=== PATIENT | female | born 2000 | race Caucasian/White ===

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

== ENCOUNTER → 2022-02-26 15:50 | Outpatient (CLI) | payer BC, SELFPAY ==
--- NOTE | 2022-02-26 | ECG_ITS ---
APPROVED REPORT Exam: Resting ECG HR:84 bpm ECG Measurements Heart Rate 84 AXES IA 131 P 77 QRSd 89 QRS 90 QT 341 T 64 QTc 382 Conclusion SINUS RHYTHM NORMAL ECG Electronically signed by : Joel Burt MD 03/16/2022 13:57:07
== END ==
PROVIDERS: PCP Internal Medicine; Visit Provider Internal Medicine
DX: R07.89 Other chest pain (principal)
CPT/HCPCS: 93005

== ENCOUNTER → 2022-06-14 17:08 | Outpatient (CLI) | payer BC, SELFPAY ==
[2022-06-14 17:23] LABS: Basophils % 0.3 % (0.1-2.0); Eosinophils # 0.1 K/mm3 (0.0-0.4); Eosinophils % 0.7 % (0.1-12.0); Hematocrit 36.2 % (37.0-47.0); Hemoglobin 12.2 g/dL (12.2-16.2); Lymphocytes # 0.4 K/mm3 (0.7-4.5); Lymphocytes % 5.9 % (10-50); Mean Corpuscular HGB Conc 33.6 g/dL (31.8-35.4); Mean Corpuscular Hemoglobin 29.7 pg (27.0-31.2); Mean Corpuscular Volume 88.3 fl (81-99); Mean Platelet Volume 8.3 fl (7.4-10.4); Monocytes # 0.3 K/mm3 (0.1-1.0); Monocytes % 4.9 % (1.7-9.3); Neutrophils # 6.1 K/mm3 (1.8-7.8); Neutrophils % 88.1 % (37.0-80.0); Platelet Count 208 K/mm3 (142-424)
[2022-06-14 17:25] LABS: MANUAL DIFFERENTIAL MANUAL DIFFERENTIAL (MANUAL DIFF)
[2022-06-14 17:36] LABS: Eosinophils % 1 % (0-3); Lymphocytes % 4 % (10-50); Monocytes % 4 % (2-9); Neutrophils % 91 % (42-76); Total Cells Counted 100
[2022-06-14 17:38] LABS: Platelet Estimate Normal; RBC Morphology Normal
== END ==
PROVIDERS: PCP Internal Medicine; Visit Provider Internal Medicine
DX: R10.9 Unspecified abdominal pain (principal)
CPT/HCPCS: 85007; 85025

== ENCOUNTER → 2022-06-14 17:09 | Outpatient (CLI) | payer BC, SELFPAY | PROVIDERS: PCP Internal Medicine; Visit Provider Internal Medicine | DX: R10.9 Unspecified abdominal pain (principal) ==

== ENCOUNTER → 2022-06-15 15:40 | Outpatient (CLI) | payer BC, SELFPAY ==
--- NOTE | 2022-06-15 15:46 | CT_ITS ---
FINAL REPORT TECHNIQUE: Axial images through the abdomen and pelvis were performed without contrast. This study was performed with techniques to keep radiation doses as low as reasonably achievable, (ALARA). Individualized dose reduction techniques using automated exposure control or adjustment of mA and/or kV according to the patient's size were employed. CLINICAL HISTORY: ABDOMINAL PAIN FINDINGS: ABDOMEN: The lung bases are clear. The heart size is normal. There are numerous calcified granulomas in the liver and spleen. There is mild nonspecific gallbladder wall thickening. There are multiple calcified nodes in the upper abdomen. No adrenal mass is identified. The aorta is normal in caliber. There is no significant free fluid or adenopathy. There are several, less than 3 mm bilateral nonobstructing renal stones. There is no hydronephrosis. No acute inflammatory process is identified. PELVIS: The appendix is normal. The urinary bladder is unremarkable. There is no significant free fluid or adenopathy. IMPRESSION: Bilateral nonobstructing renal stones. Mild nonspecific gallbladder wall thickening. No acute inflammatory process. Reviewed, Interpreted and Dictated by Kevin Sanz III, MD Transcribed by Geovanna Lyons Authenticated and [facility]
== END ==
LOC: RAD 15:41
PROVIDERS: PCP Internal Medicine; Visit Provider Internal Medicine
DX: R10.9 Unspecified abdominal pain (principal)
CPT/HCPCS: 74176

== ENCOUNTER → 2022-11-05 16:02 | Outpatient (CLI) | payer BC, SELFPAY ==
[2022-11-05 16:22] VITALS: BMI 21.2
== END ==
PROVIDERS: PCP Internal Medicine; Visit Provider Physician Assistant
DX: Z11.1 Encounter for screening for respiratory tuberculosis (principal)
CPT/HCPCS: 86580

== ENCOUNTER 2023-06-10 15:41 | Outpatient (CLI) | payer BC, SELFPAY ==
--- NOTE | 2023-06-10 03:50 | ECG_ITS ---
APPROVED REPORT Exam: Resting ECG HR:78 bpm ECG Measurements Heart Rate 78 AXES OH 135 P 75 QRSd 87 QRS 90 QT 347 T 74 QTc 380 Conclusion SINUS RHYTHM NORMAL ECG UNCONFIRMED REPORT Electronically signed by : Mark Sims MD 06/10/2023 19:26:57
--- NOTE | 2023-06-10 16:41 | XR_ITS ---
PROCEDURE INFORMATION: Exam: XR Chest Exam date and time: 06/10/2023 4:43 PM Age: 23 years old Clinical indication: Sternal or substernal pain; Patient HX: Palpitations, cp. HX of histoplasmosis TECHNIQUE: Imaging protocol: Radiologic exam of the chest. Views: 2 views. COMPARISON: CR XR CHEST 2V 03/26/2019 4:31 PM FINDINGS: Lungs: Normal. Pleural spaces: Normal No pleural effusion. No pneumothorax. Heart/Mediastinum: Normal. No cardiomegaly. Bones/joints: Unremarkable. IMPRESSION: No acute findings.
== END 2023-06-10 23:59 ==
PROVIDERS: PCP Internal Medicine; Visit Provider Internal Medicine
DX: R00.2 Palpitations (principal); R07.89 Other chest pain; Z86.19 Personal history of other infectious and parasitic diseases
CPT/HCPCS: 71046; 93005; 93225

== ENCOUNTER 2023-06-24 09:23 | Outpatient (CLI) | payer BC, SELFPAY ==
--- NOTE | 2023-06-24 | CA_ITS ---
APPROVED REPORT Exam: Exercise Treadmill Technologist: Charo Andres, Ht: 5 ft 9 in Wt: 135 lbs BSA: 1.75 m2 HR: 86 bpm BP: 126/76 mmHg Rhythm: NSR Stress Test Details Test: Triston HR Resting HR: 104 bpm Max Heart Rate (APMHR): 199 bpm Max HR Achieved: 183 bpm Target HR (85% APMHR): 169 bpm % of APMHR: 92 Recovery HR: 112 bpm HR response to stress: Normal HR response to stress BP Resting BP: 133.0/81.0 mmHg Max BP: 144.0/60.0 mmHg Recovery BP: 130.0/76.0 mmHg BP response to stress: Normal blood pressure response to stress. ECG Resting ECG: NSR, rightward axis Stress ECG: < 0.[address] depression Arrhythmia: None Recovery ECG: Return to baseline within 3 minutes of recovery Recovery Arrhythmia: None Clinical Exercise duration: 09:39 min Highest Stage Achieved: IV Exercise capacity: 10.1 METs Overall Exercise Capacity for Age: Average Stress ECG Conclusion The patient was able to exercise for a total of 9 minutes, 39 seconds. She achieved a total of 10.1 METS. She has average exercise capacity compared to age and sex matched peers. She has normal HR and BP response to exercise. Max HR: 183 % of PM: 92% Max HR: 144/64 METs: 10.1 Test stopped due to: SOA Symptoms: No CP. Arrhythmias/Ectopy: None ST-T Changes: 0.[address] depression that resolved quickly after recovery Conclusion: Average exercise capacity. No ECG evidence of ischemia at peak stress. GXT only (no imaging) Test Summary REST . . . . . . . Sitting REST . . . . . . . Standing REST 03:31 0.0 0.0 104 . 133/ 81 . . Stage 1 01:00 10.0 1.7 124 . . . . Stage 1 02:00 10.0 1.7 132 . . . . Stage 1 03:00 10.0 1.7 136 . 138/ 62 . . Stage 2 01:00 12.0 2.5 145 . . . . Stage 2 02:00 12.0 2.5 152 . . . . Stage 2 03:00 12.0 2.5 154 . 144/ 60 . . Stage 3 01:00 14.0 3.4 166 . . . . Stage 3 02:00 14.0 3.4 171 . . . . Stage 3 03:00 14.0 3.4 174 . 144/ 64 . . Stage 4 00:39 16.0 4.2 182 . . . Stop exercise at 09:39 RECOVERY 01:00 0.0 0.0 164 . . . . RECOVERY 02:00 0.0 0.0 136 . 140/ 73 . . RECOVERY 03:00 0.0 0.0 120 . 140/ 73 . . RECOVERY 04:00 0.0 0.0 118 . 132/ 70 . . RECOVERY 05:00 0.0 0.0 112 . 130/ 76 . . RECOVERY 05:27 0.0 0.0 106 . 130/ 76 . . Electronically signed by : Dolly Morales MD 06/28/2023 00:51:13
--- NOTE | 2023-06-24 09:28 | CA_ITS ---
APPROVED REPORT EXAM: Comprehensive 2D, Doppler, and color-flow Echocardiogram Continuous Absorption Process Operator: Luci Downey, RT(R) Ht: 5 ft 8 in Wt: 136lbs BSA: 1.73 BP: 120/80 mmHg Indications: CP, smoker(vape), palpitations 2D Dimensions Left Atrium 2.46 cm F: 2.7 - 3.8 LA Volume 24.50 mL LVOT 2.11 cm (M/F) 1.5-2.5 LA Volume Index 14.08 mL/m2 (M/F) 16-34 EF AP4 42.30 % GL Strain -17.7 % M-Mode Dimensions RVDd 2.33 cm (0.9-2.6) LVDd 4.73 cm (3.5-5.7) Ao Diam 2.96 cm (2.0-3.7) LVDs 3.55 cm (3.5-5.7) IVSd 0.79 cm (0.6-1.1) PWd 0.69 cm (0.6-1.1) EF (Teich) 49.40% FS 24.90% EDV (Teich) 103.90 mL ESV (Teich) 52.60 mL LV Diastology E Decel Time 151 (160-240 msec) E/A Ratio 1.4 Mitral Valve MV E Max Keo. 89.0 (40-130 cm/s) MV A Velocity 62.0 (40-130 cm/s) E/A Ratio 1.44 MV Decel. Time 151 (160-240 ms) Tricuspid Valve TR P. Velocity 215.00 cm/s RAP Estimate 10.00 mmHg RVSP 28.50 mmHg Left Ventricle The left ventricle is normal size. The left ventricular systolic function is normal. The left ventricular ejection fraction is within the normal range. There is normal left ventricular wall thickness. There is normal LV segmental wall motion. The left ventricular diastolic function is normal. LVEF is 55%. Right Ventricle The right ventricle is normal size. The right ventricular systolic function is normal. Atria The left atrium size is normal. The right atrium size is normal. There is no Doppler evidence of interatrial shunt. Aortic Valve The aortic valve is normal in structure. The aortic valve is trileaflet. There is no aortic valvular stenosis. No aortic regurgitation is present. Mitral Valve The mitral valve is normal in structure. No evidence of mitral valve stenosis. There is no mitral valve regurgitation noted. Tricuspid Valve The tricuspid valve leaflets are thin and pliable. Trace tricuspid regurgitation. RVSP is normal. Pulmonic Valve The pulmonary valve is normal in structure. Trace pulmonic regurgitation. Great Vessels The aortic root is normal in size. The ascending aorta is normal in size. IVC is normal in size and collapses >50% with inspiration. Pericardium There is no pericardial effusion. Other Information Study Quality: Adequate Conclusion Normal biventricular systolic function. No significant valvular stenosis or regurgitation. Electronically signed by : Dolly Morales MD 06/24/2023 23:48:24
== END 2023-06-24 23:59 ==
LOC: RT 09:25
PROVIDERS: PCP Internal Medicine; Visit Provider Internal Medicine
DX: R00.2 Palpitations (principal); R07.9 Chest pain, unspecified
CPT/HCPCS: 93017; 93018; 93306

== ENCOUNTER 2024-03-21 15:44 | Emergency (ER) | payer BC, SELFPAY ==
[2024-03-21 16:00] VITALS: BP 141/89; PULSE 94; RESP 20; TEMP 36.9; O2SAT 99; BMI 21.7
--- NOTE | 2024-03-21 16:20 | ED_ITS ---
Discharge Plan Disposition Patient Disposition: Home, Self-Care Condition: Good Prescriptions Prescriptions: No Action No Known Home Medications Referrals Follow up/Referrals: Joel Burt MD [Primary Care Provider] - See instructions Activity Restrictions/Add. Instructions Additional Instructions/Restrictions: *Monitor Temp, Over the counter Motrin or Tylenol as directed/as needed Tylenol every 4 hours and Motrin every 6 hours (as long as your family doctor has told you that you can take it) for fever or pain. and straight to ER if unable to lower temp less than 101.0 after medication given *Warm salt water gargles may help to soothe the throat *Throat Lozenges? *Warm fluids like tea with honey may help to soothe the throat? *Sleep elevated *Humidifier/Vaporizer *Your throat swab was sent for culture. Those results are typically sent to your primary care. Be sure to follow up in 2-3 days with your family doctor/primary care physician if no improvement so they can review those result and treat if necessary. If you don?t have a primary care doctor, I recommend you get one but in the mean time, you will have to return to a walk in clinic Follow up IMMEDIATELY for new or worsening symptoms or no Noticeable improvement over the next 48-72 hours. 911 for difficulty breathing or swallowing Clinical Impressions Clinical Impression: Viral upper respiratory infection Instructions Patient Instructions: DI for Viral Upper Respiratory Infection -- Adult Print Language Print Language: Dominican Discharge ED Provider: Sofia Vasques [facility] [place] HPI General Stated complaint: sore throat, body aches, chills Mode of Arrival: Ambulatory Source of Information: Patient Limitations: No Limitations Time Seen by Provider: 03/21/24 16:20 Description of Symptoms (Recalled from Triage Doc. by RN): PATIENT C/O SORE THROAT, BODY ACHES, AND CHILLS SINCE YESTERDAY HEENT Symptoms (Recalled from RN notes): Yes Resp Symptoms (Recalled from RN notes): No Skin Symptoms (Recalled from RN notes): No MS Symptoms (Recalled from RN notes): No Functional Status (Recalled from RN notes): WNL History of Present Illness Provider Complaint: Patient states that she started feeling bad yesterday with sore throat, body aches, and chills States that she was worried that she may have strep or flu and she is suppose to work the weekend so she wanted to get checked Related Data Home Medications ?Medication ?Instructions ?Recorded ?Confirmed medroxyprogesterone 150 mg/mL 150 mg IM ONCE 03/21/24 03/21/24 intramuscular suspension Allergies Allergy/AdvReac Type Severity Reaction Status Date / Time cephalexin (From KEFLEX) Allergy Intermediate I-RASH Verified 02/08/24 15:00 Worker's Comp Is this a Worker's Comp case?: No PFSH [facility] Disclaimer: The information contained in this section may have been updated after the patient was seen, as this information can be updated by other users. Medical History Histoplasma capsulatum infection Surgical History (Reviewed 02/08/24 @ 15: by Awilda Dumont MA) [place] teeth removed Family History Other Alcoholism Asthma Cancer Diabetes Hyperlipidemia Hypertension Social History Smoking Status: Current every day smoker tobacco type: e-cigarettes alcohol intake: never current occupational status: employed Travel in the last 8 weeks: None household members: family ROS Obtained: Yes All systems reviewed & no additional complaints except as documented and Yes Systems reviewed as appropriate & no additional complaints except as documented Constitutional Constitutional: Reports system reviewed and no additional complaints, except as documented, Reports as per HPI, Reports body ache and Reports chills ENT Ears, Nose, Mouth, and Throat: Reports system reviewed and no additional complaints, except as documented, Reports as per HPI and Reports sore throat Cardiovascular Cardiovascular: Reports system reviewed and no additional complaints, except as documented and Reports as per HPI Respiratory Respiratory: Reports system reviewed and no additional complaints, except as documented and Reports as per HPI Gastrointestinal Gastrointestingal: Reports system reviewed and no additional complaints, except as documented and as per HPI Physical Exam General General appearance: alert and in no apparent distress ENT ENT exam: Present mucous membranes moist and TM's normal bilaterally Expanded ENT Exam Throat exam: Present tonsillar erythema; Absent tonsillomegaly or tonsillar exudate Respiratory Respiratory exam: Present normal lung sounds bilaterally; Absent respiratory distress or wheezes Cardiovascular Cardiovascular exam: Present regular rate, normal rhythm and normal heart sounds Abdominal Exam Abdominal exam: Present soft and normal bowel sounds; Absent distention or tenderness Neurological Exam Neurological exam: Present alert, oriented X3 and normal gait Medical Decision Making Medical Records Screening: Per USPSTF and CDC recommendations, given the prevalence of disease in our region, it is our hospital?s policy to screen for HIV and viral Hepatitis for all patients aged 18 and over and those with ongoing risk factors. Lamont Inquiry Pt receiving controlled substance: No Lamont was queried for this patient: No Vital Signs: 03/21/24 16:00 Temperature 98.5 F Temperature Source Oral Pulse Rate [Left Brachial] 94 H Respiratory Rate 20 Blood Pressure [Left Arm] 141/89 H Blood Pressure Mean [Left Arm] 106 Blood Pressure Source [Left Arm] Automatic Cuff Blood Pressure Position [Left Arm] Sitting 02 Sat by Pulse Oximetry 99 Oxygen Delivery Method Room Air Lab Data Lab results reviewed: Yes I reviewed the patient's lab results.
[2024-03-21 16:21] LABS: UTC Influenza A Antigen Negative (Negative); UTC Strep Screen (Rapid) Negative (Negative)
[2024-03-21 16:22] LABS: UTC Influenza B Antigen Negative (Negative)
[2024-03-21 16:32] VITALS: BP 141/89; PULSE 94; RESP 20; TEMP 36.9; O2SAT 99
[2024-03-21 16:40] LABS: Coronavirus 19, PCR Not Detected (NotDetected); Influenza A, PCR Not Detected (NotDetected); Influenza B, PCR Not Detected (NotDetected)
== END 2024-03-21 16:36 | disposition home or self-care (01) ==
PROVIDERS: Emergency Provider Nurse Practitioner; PCP Internal Medicine
DX: J06.9 Acute upper respiratory infection, unspecified (principal); J02.9 Acute pharyngitis, unspecified; M79.10 Myalgia, unspecified site; R68.83 Chills (without fever)
CPT/HCPCS: 87636; 87804; 87880; 99212; G0381

== ENCOUNTER 2024-03-24 10:05 | Emergency (ER) | payer BC, SELFPAY ==
--- NOTE | 2024-03-24 11:12 | EXP.UTC ---
Discharge Plan Disposition Patient Disposition: Home, Self-Care Condition: Good Prescriptions Prescriptions: New azithromycin [Zithromax] 250 mg tablet 250 mg PO UD DOSE PK Qty: 6 0RF Rx Instructions: Take two (2) tablets today, then one (1) tablet days #2 thru #5 methylprednisolone 4 mg Tablets,Dose Pack 4 mg PO DIRECTED 6 Days Qty: 21 0RF Rx Instructions: Take 1 pack as directed for 6 days [id number] [Bromfed DM] 2-30-10 mg/5 mL Syrup 5 ml PO Q6H PRN (Reason: Cough) Qty: 240 0RF No Action medroxyprogesterone 150 mg/mL suspension 150 mg IM ONCE Patient Comments: INJECT 1ML INTRAMUSCULARLY ONCE EVERY 3 MONTHS DIRECTED Referrals Follow up/Referrals: Joel Burt MD [Primary Care Provider] - See instructions Activity Restrictions/Add. Instructions Additional Instructions/Restrictions: Drink plenty of fluids. Take tylenol or ibuprofen for pain or fever. Take the medications as directed. Follow up with your regular doctor. GO TO THE ER FOR ANY WORSENING SYMPTOMS Clinical Impressions Clinical Impression: Acute bronchitis Stand Alone Forms Stand Alone Forms: Work/School Release Instructions Patient Instructions: Acute Bronchitis, DI for Acute Bronchitis Print Language Print Language: [place] Discharge ED Provider: Cr Jacobo [facility] HPI General Stated complaint: dizzy, sore throat, weakness Time Seen by Provider: 03/24/24 11:12 Related Data Home Medications ?Medication ?Instructions ?Recorded ?Confirmed medroxyprogesterone 150 mg/mL 150 mg IM ONCE 03/21/24 03/24/24 intramuscular suspension Previous Rx's ?Medication ?Instructions ?Recorded azithromycin 250 mg tablet 250 mg PO UD DOSE PK #6 tabs 03/24/24 (Zithromax) [id number] 5 ml PO Q6H PRN Cough #240 mL 03/24/24 2 mg-30 mg-10 mg/5 mL oral syrup (Bromfed DM) methylprednisolone 4 mg tablets in 4 mg PO DIRECTED 6 days #21 tabs 03/24/24 a dose pack Allergies Allergy/AdvReac Type Severity Reaction Status Date / Time cephalexin (From KEFLEX) Allergy Intermediate I-RASH Verified 02/08/24 15:00 [facility] Disclaimer: The information contained in this section may have been updated after the patient was seen, as this information can be updated by other users. Medical History Histoplasma capsulatum infection Surgical History (Reviewed 02/08/24 @ 15: by Awilda Dumont MA) [place] teeth removed Family History (Reviewed 02/08/24 @ 15: by Awilda Dumont MA) Other Alcoholism Asthma Cancer Diabetes Hyperlipidemia Hypertension Social History Smoking Status: Current every day smoker tobacco type: e-cigarettes alcohol intake: never current occupational status: employed Travel in the last 8 weeks: None household members: family Have you lived/traveled outside [place] in past 30 days?: No Contact w/someone who lives/traveled outside US past 30 days?: No Exposure to someone with infectious disease in past 14 days?: No Do you have a fever (greater than 100.4 F or 38 C)?: No Have you tested positive for COVID-19: No Exposed to someone with COVID-19 in past 14 days?: No Do you have a sore throat?: No Do you have a cough?: Yes Do you have any weakness?: Yes Do you have any diarrhea?: No Are you experiencing any unusual bleeding?: No Do you have any muscle aches/pain?: No Do you have any abdominal pain?: No Are you experiencing loss of taste or smell?: No ROS Obtained: Yes All systems reviewed & no additional complaints except as documented Constitutional Constitutional: Reports poor appetite Eyes Eyes: Reports system reviewed and no additional complaints, except as documented ENT Ears, Nose, Mouth, and Throat: Reports as per HPI Cardiovascular Cardiovascular: Reports system reviewed and no additional complaints, except as documented and Denies chest pain Respiratory Respiratory: Denies shortness of breath, Reports chest congestion, Reports cough, Denies stridor and Denies wheezing Gastrointestinal Gastrointestingal: Reports system reviewed and no additional complaints, except as documented; Denies abdominal pain, diarrhea or vomiting Musculoskeletal Musculoskeletal: Reports system reviewed and no additional complaints, except as documented and Denies arthralgias Integumentary/Breasts Skin/Breast: Reports system reviewed and no additional complaints, except as documented and Denies rash Neurologic Neurologic: Denies paresthesias Allergic/Immunologic Allergic/Immunologic: Denies wheezing Physical Exam General General appearance: alert and in no apparent distress Head Head exam: atraumatic, normocephalic and normal inspection Eye Eye exam: Present normal appearance, PERRL and EOMI ENT ENT exam: Present normal exam, normal oropharynx, mucous membranes moist, TM's normal bilaterally and normal external ear exam Neck Neck exam: Present normal inspection, full ROM and trachea midline; Absent meningismus or lymphadenopathy Chest Chest inspection: Present normal inspection and symmetric chest wall rise; Absent tenderness Respiratory Respiratory exam: Present normal lung sounds bilaterally; Absent respiratory distress Cardiovascular Cardiovascular exam: Present regular rate and normal rhythm; Absent JVD Abdominal Exam Abdominal exam: Present soft and normal bowel sounds; Absent distention, tenderness or guarding Extremities Exam Extremities exam: Present normal inspection, full ROM and normal capillary refill; Absent calf tenderness Back Exam Back exam: Present normal inspection; Absent tenderness Neurological Exam Neurological exam: Present alert and oriented X3 Psychiatric Psychiatric exam: Present normal affect and normal mood Skin Skin exam: Present warm, dry, intact and normal color Lymphatic Lymphatic Findings: no adenopathy Medical Decision Making Medical Records Medical records reviewed: No I reviewed the patient's medical records. Screening: Per USPSTF and CDC recommendations, given the prevalence of disease in our region, it is our hospital?s policy to screen for HIV and viral Hepatitis for all patients aged 18 and over and those with ongoing risk factors. Lamont Inquiry Pt receiving controlled substance: No Lab Data Lab results reviewed: Yes I reviewed the patient's lab results.
[2024-03-24 11:17] VITALS: BP 159/92; PULSE 81; RESP 20; TEMP 37.1; O2SAT 100; BMI 21.4
[2024-03-24 11:29] LABS: UTC Strep Screen (Rapid) Negative (Negative)
[2024-03-24 12:11] VITALS: BP 159/92; PULSE 81; RESP 20; TEMP 37.1
== END 2024-03-24 12:13 | disposition home or self-care (01) ==
PROVIDERS: Emergency Provider Nurse Practitioner Family; PCP Internal Medicine
DX: J40 Bronchitis, not specified as acute or chronic (principal); R42 Dizziness and giddiness; R53.1 Weakness; J02.9 Acute pharyngitis, unspecified; R63.8 Other symptoms and signs concerning food and fluid intake
CPT/HCPCS: 87880; 99212; G0381

== ENCOUNTER 2024-08-23 15:15 | Outpatient (CLI) | payer BC, SELFPAY ==
[2024-08-23 15:42] LABS: Basophils % 0.4 % (0.1-2.0); Eosinophils # 0.1 Kmm3 (0.0-0.4); Hematocrit 40.3 % (37.0-47.0); Hemoglobin 13.3 g/dL (12.2-16.2); Immature Granulocytes # 0.03 10^3uL; Immature Granulocytes % 0.4 %; Lymphocytes # 1.6 K/mm3 (0.7-4.5); Lymphocytes % 21.5 % (10-50); Mean Corpuscular Hemoglobin 29.4 pg (27.0-31.2); Mean Corpuscular Volume 89.2 fl (81-99); Mean Platelet Volume 10.1 fl (7.4-10.4); Monocytes # 0.7 K/mm3 (0.1-1.0); Monocytes % 9.6 % (1.7-9.3); Neutrophils # 4.8 K/mm3 (1.8-7.8); Neutrophils % 67.1 % (37.0-80.0); Nucleated Red Blood Cells # 0 10^3/uL; Nucleated Red Blood Cells % 0 %; Platelet Count 311 K/mm3 (142-424); Red Blood Count 4.52 M/mm3 (4.20-5.40); Red Cell Distribution Width 12.8 % (11.5-17.5); Red Cell Distribution Width-SD 41.7 fL; White Blood Count 7.2 K/mm3 (4.8-10.8)
[2024-08-23 16:53] LABS: Thyroid Stimulating Hormone 0.96 uIU/mL (0.465-4.68)
== END 2024-08-23 23:59 | disposition home or self-care (01) ==
LOC: LAB 15:16
PROVIDERS: PCP Internal Medicine; Visit Provider Obstetrics & Gynecology
DX: Z00.00 Encounter for general adult medical examination without abnormal findings (principal)
CPT/HCPCS: 36415; 84443; 85025